=== PATIENT | male | born 1955 | race Asian ===

== ENCOUNTER 2022-08-10 10:58 | Emergency (ER) | payer OTHER ==
[~2022-08-10] VITALS: Ht 170.2 cm; Wt 70.3 kg
[2022-08-10 11:13] VITALS: BP_SYST 151
[2022-08-10] MEDS ORDERED: chlorproMAZINE HCL 50 MG/ 2 ML AMP IM ONE (12:15)
[2022-08-10 12:47] LABS: BASOPHILS % (AUTO) 0.6 % (0.0-2.0); EOSINOPHILS % (AUTO) 0.8 % (0.0-4.0); HEMATOCRIT 42.9 % (36-54); HEMOGLOBIN 14.2 g/dL (14.0-18.0); LYMPHOCYTES # (AUTO) 1.2 K/uL (1.0-5.5); LYMPHOCYTES % (AUTO) 20.8 % (20.5-51.5); MEAN CORPUSCULAR HEMOGLOBIN 30 pg (27-31); MEAN CORPUSCULAR HGB CONC 33 % (32-36); MEAN CORPUSCULAR VOLUME 89 fL (79.0-98.0); MONOCYTES # (AUTO) 0.7 K/uL (0.0-1.0); MONOCYTES % (AUTO) 12.2 % (1.7-9.3); NEUTROPHILS # (AUTO) 3.7 K/uL (1.8-7.7); NEUTROPHILS % (AUTO) 65.6 % (40.0-70.0); PLATELET COUNT (AUTO) 144 K/uL (130-430); RED BLOOD CELL COUNT(AUTO) 4.81 MIL/uL (4.2-6.2); RED CELL DISTRIBUTION WIDTH 14.2 % (9.0-15.0); WHITE BLOOD COUNT (AUTO) 5.7 K/uL (4.8-10.8)
[2022-08-10 12:50] LABS: ANION GAP 7 (5-15); CALCIUM 8.4 mg/dL (8.4-11.0); CHLORIDE 103 mmol/L (98-107); CREATININE 1.14 mg/dL (0.55-1.30); GFR AFRICAN AMERICAN 82 mL/min (>90); GLUCOSE 96 mg/dL (70-99); UREA NITROGEN, BLOOD 14 mg/dL (8-21)
[2022-08-10 12:57] LABS: ALANINE AMINOTRANSFERASE 25 U/L (12-78); ALBUMIN 3.6 g/dL (3.4-4.8); ASPARTATE AMINOTRANSFERASE 18 U/L (10-37); TOTAL BILIRUBIN 0.7 mg/dL (0.0-1.0)
--- NOTE | 2022-08-10 13:30 | NUR ---
Patient to ER bed 4. No gown for evaluation. Side rails up. Report given to BELEM Turner.
[2022-08-10] MEDS ORDERED: THOR25 PO (13:36)
[2022-08-10] MEDS ORDERED: BACLOFEN 10 MG TABLET PO ONE (13:45)
[2022-08-10] MEDS ORDERED: BACL5TAB PO (13:45)
--- NOTE | 2022-08-10 14:00 | NUR ---
Patient given medicine and is at bedside with family member. Patient jeffers stopped hiccuping after medication.
--- NOTE | 2022-08-10 14:00 | NUR ---
Patient given written and verbal discharge instructions and verbalizes understanding. ER MD discussed with patient the results and treatment provided. Patient in stable condition. ID arm band removed. Rx of baclofen given. Patient educated on pain management and to follow up with PMD. Pain Scale 0/10. Opportunity for questions provided and answered.
== END 2022-08-10 14:00 | disposition home or self-care (01) ==
LOC: SED 10:58
DX: R06.6 Hiccough (principal); I10 Essential (primary) hypertension; Z79.899 Other long term (current) drug therapy
CPT/HCPCS: 99283; 80053; 82550; 85025; 84484; 36415; 96372; J3230